=== PATIENT | male | born 1960 | race Two or more races ===

== ENCOUNTER 2019-07-22 16:26 | Emergency (ER) | payer BC ==
[2019-07-22 16:32] VITALS: RESP 18
[2019-07-22 17:32] LABS: Appearance,Urine Cloudy (Clear); Bilirubin,Urine Negative (Negative); Blood,Urine Large (Negative); Color,Urine Yellow; Glucose,Urine (UA) 2+ (Negative); Ketones,Urine Negative (Negative); Leukocyte Esterase,Urine Trace (Negative); Mucus,Urine Rare /hpf; Nitrite,Urine Negative (Negative); PH, Urine 6.5 (5.0-8.0); Protein,Urine 1+ (Negative); RBC,Urine >182 /hpf (0-5); Specific Gravity,Urine 1.009 (1.001-1.035); Urobilinogen,Urine <2.0 mg/dL (<2.0); WBC,Urine 10 /hpf (0-5)
[2019-07-22 17:39] LABS: Basophils # (A) 0.1 k/uL (0-0.2); Basophils % (A) 1 %; Eosinophils # (A) 0.1 k/uL (0-0.7); Eosinophils % (A) 2 %; HGB 14.4 gm/dL (13.0-17.5); Lymphocytes # (A) 1.6 k/uL (1.0-4.8); Lymphocytes % (A) 18 %; MCH 30.6 pg (25.0-35.0); MCHC 35.2 g/dL (31.0-37.0); MCV 87.1 fL (80.0-100.0); Mean Platelet Volume 7.6; Monocytes # (A) 0.3 k/uL (0-1.0); Monocytes % (A) 3 %; Neutrophils # (A) 6.5 k/uL (1.3-7.7); Neutrophils % (A) 75 %; Platelet Count 217 k/uL (150-450); RBC 4.71 m/uL (4.30-5.90); RDW 12.6 % (11.5-15.5); WBC 8.8 k/uL (3.8-10.6)
[2019-07-22 17:51] LABS: ALT 34 U/L (21-72); AST 25 U/L (17-59); African American GFR (CKD) >90 (>60 ml/min/1.73 sqM); Albumin 4.6 g/dL (3.5-5.0); Alkaline Phosphatase 72 U/L (38-126); Anion Gap 11 mmol/L; Blood Urea Nitrogen 16 mg/dL (9-20); Calcium 9.9 mg/dL (8.4-10.2); Carbon Dioxide 27 mmol/L (22-30); Chloride 101 mmol/L (98-107); Glucose 224 mg/dL (74-99); Potassium 4.2 mmol/L (3.5-5.1); Sodium 139 mmol/L (137-145); Total Bilirubin 0.7 mg/dL (0.2-1.3); Total Protein 7.4 g/dL (6.3-8.2)
--- NOTE | 2019-07-22 18:35 | ED ---
General Adult HPI - General Chief complaint: Urogenital Stated complaint: urinating blood Time Seen by Provider: 07/22/19 16:35 Source: patient, family, RN notes reviewed Mode of arrival: ambulatory Limitations: no limitations - History of Present Illness Initial comments: 59-year-old male with a past medical history of hypertension, diabetes mellitus presents to the emergency department for a chief complaint of hematuria 3 weeks. Patient states that this has been intermittent over the past 3 weeks. States he has seen his primary care provider and had a urinalysis done that showed hematuria. States that he was referred to urology and has an appointment in 5 days with them. However today he had more bleeding than normal when he urinated and so wanted to be evaluated. Patient was also concerned because his blood pressure at home was systolic of 190. Denies any abdominal pain. Denies any flank pain. Denies any dysuria. Does admit to urinary frequency. Denies any difficulty urinating.Patient has no other complaints at this time including shortness of breath, chest pain, abdominal pain, nausea or vomiting, headache, or visual changes. - Related Data Allergies Allergy/AdvReac Type Severity Reaction Status Date / Time No Known Allergies Allergy Verified 07/22/19 16:32 Review of Systems ROS Statement: Those systems with pertinent positive or pertinent negative responses have been documented in the HPI. ROS Other: All systems not noted in ROS Statement are negative. Past Medical History Past Medical History: Diabetes Mellitus, Hypertension History of Any Multi-Drug Resistant Organisms: None Reported Past Surgical History: No Surgical Hx Reported Past Psychological History: No Psychological Hx Reported Smoking Status: Current every day smoker Past Alcohol Use History: Occasional Past Drug Use History: None Reported General Exam Limitations: no limitations General appearance: alert, in no apparent distress Head exam: Present: atraumatic, normocephalic, normal inspection Eye exam: Present: normal appearance, PERRL, EOMI. Absent: scleral icterus, conjunctival injection, periorbital swelling ENT exam: Present: normal exam, mucous membranes moist Neck exam: Present: normal inspection, full ROM. Absent: tenderness, meningismus, lymphadenopathy Respiratory exam: Present: normal lung sounds bilaterally. Absent: respiratory distress, wheezes, rales, rhonchi, stridor Cardiovascular Exam: Present: regular rate, normal rhythm, normal heart sounds. Absent: systolic murmur, diastolic murmur, rubs, gallop, clicks GI/Abdominal exam: Present: soft, normal bowel sounds. Absent: distended, tenderness, guarding, rebound, rigid Back exam: Absent: CVA tenderness (R), CVA tenderness (L) Psychiatric exam: Present: normal affect, normal mood Course Vital Signs 07/22/19 16:29 Temperature 97.9 F Pulse Rate 104 H Respiratory 18 Rate Blood Pressure 168/95 O2 Sat by Pulse 99 Oximetry Medical Decision Making - Medical Decision Making 59-year-old male presents for hematuria 3 weeks. HPI is documented. Vitals are stable. Patient is hypertensive of 160/95 however does have a history of this. Urinalysis initially obtained which did show gross hematuria and greater than 182 red blood cells. 10 white blood cells. Culture pending. CBC CMP unremarkable. Glucose is 224 patient has a history of diabetes.. Kidney function is normal. At this time patient is hemodynamically stable. I discussed importance of following up with urology for cystoscopy and possible further imaging. He will attend his appointment in 5 days. Discussed returning here if he has worsening symptoms or is unable to urinate. - Lab Data Result diagrams: 07/22/19 17:30 07/22/19 17:30 Lab Results 07/22/19 07/22/19 07/22/19 Range/Units 17:07 17:30 17:30 WBC 8.8 (3.8-10.6) k/uL RBC 4.71 (4.30-5.90) m/uL Hgb 14.4 (13.0-17.5) gm/dL Hct 41.0 (39.0-53.0) % MCV 87.1 (80.0-100.0) fL MCH 30.6 (25.0-35.0) pg MCHC 35.2 (31.0-37.0) g/dL RDW 12.6 (11.5-15.5) % Plt Count 217 (150-450) k/uL Neutrophils % 75 % Lymphocytes % 18 % Monocytes % 3 % Eosinophils % 2 % Basophils % 1 % Neutrophils # 6.5 (1.3-7.7) k/uL Lymphocytes # 1.6 (1.0-4.8) k/uL Monocytes # 0.3 (0-1.0) k/uL Eosinophils # 0.1 (0-0.7) k/uL Basophils # 0.1 (0-0.2) k/uL Sodium 139 (137-145) mmol/L Potassium 4.2 (3.5-5.1) mmol/L Chloride 101 (98-107) mmol/L Carbon Dioxide 27 (22-30) mmol/L Anion Gap 11 mmol/L BUN 16 (9-20) mg/dL Creatinine 0.70 (0.66-1.25) mg/dL Est GFR (CKD-EPI)AfAm >90 (>60 ml/min/1.73 sqM) Est GFR (CKD-EPI)NonAf >90 (>60 ml/min/1.73 sqM) Glucose 224 H (74-99) mg/dL Calcium 9.9 (8.4-10.2) mg/dL Total Bilirubin 0.7 (0.2-1.3) mg/dL AST 25 (17-59) U/L ALT 34 (21-72) U/L Alkaline Phosphatase 72 (38-126) U/L Total Protein 7.4 (6.3-8.2) g/dL Albumin 4.6 (3.5-5.0) g/dL Urine Color Yellow Urine Appearance Cloudy (Clear) Urine pH 6.5 (5.0-8.0) Ur Specific [place] 1.009 (1.001-1.035) Urine Protein 1+ H (Negative) Urine Glucose (UA) 2+ H (Negative) Urine Ketones Negative (Negative) Urine Blood Large H (Negative) Urine Nitrite Negative (Negative) Urine Bilirubin Negative (Negative) Urine Urobilinogen <2.0 (<2.0) mg/dL Ur Leukocyte Esterase Trace H (Negative) Urine RBC >182 H (0-5) /hpf Urine WBC 10 H (0-5) /hpf Urine Mucus Rare H (None) /hpf Disposition Clinical Impression: Hematuria Disposition: HOME SELF-CARE Condition: Good Instructions (If sedation given, give patient instructions): Hematuria (ED) Additional Instructions: Please follow up with urology as soon as possible or at your appointment. Please return here if you have any worsening symptoms or are unable to urinate. Is patient prescribed a controlled substance at d/c from ED?: No Referrals: Phil Blackbunr MD [Primary Care Provider] - 1-2 days Timmy Arias MD [STAFF PHYSICIAN] - 1-2 days Time of Disposition: 18:52
[2019-07-22 19:19] VITALS: BP 145/87; PULSE 84; TEMP 98.7
== END 2019-07-22 19:19 | disposition home or self-care (01) ==
LOC: EC 16:26
DX: R31.0 Gross hematuria (principal); R35.0 Frequency of micturition; I10 Essential (primary) hypertension; F17.200 Nicotine dependence, unspecified, uncomplicated
CPT/HCPCS: 36415; 80053; 81001; 85025; 87086; 99283

== ENCOUNTER → 2020-03-26 | Outpatient (CLI) | payer BC ==
[2020-03-26 07:36] LABS: African American GFR (CKD) >90 (>60 ml/min/1.73 sqM); Blood Urea Nitrogen 17 mg/dL (9-20); Non-African American GFR(CKD) 90 (>60 ml/min/1.73 sqM)
--- NOTE | 2020-03-26 10:05 | CT ---
EXAMINATION TYPE: CT urogram wo/w con DATE OF EXAM: 03/26/2020 COMPARISON: None INDICATION: gross hematuria, right flank pain DLP: 2299.9 mGycm, Automated exposure control for dose reduction was used. CONTRAST: 100 mL of Isovue 300. Study performed TECHNIQUE: Axial images were obtained from above the diaphragm to the pubic rami in the axial plane a t 5 mm thick sections. Reconstructed images are reviewed on the computer in the coronal plane. FINDINGS: Limited CT sections are obtained the lung bases. The lung bases are clear. CT ABDOMEN: Liver: Tiny hypodensities in the posterior right upper lobe of the liver and measuring 0.5 cm. This could be a very small cyst. This is too small to classify as a simple cyst. Spleen: Normal Pancreas: Normal Adrenal glands: Right adrenal gland is thickened measuring 2.7 cm and 13 Hounsfield units precontrast . Postcontrast this measures 54 Hounsfield units. On delayed images this measures 30 Hounsfield.. Lef t adrenal gland is normal. Gallbladder: Normal Kidneys: No masses are evident. No hydronephrosis is present. There is a 3.2 cm cyst measuring 9 Ho unsfield units on the medial mid left kidney. Delayed images were obtained through the kidneys, whic h remain unremarkable. Aorta: Vascular calcification is within the aorta. Inferior vena cava: Normal. CT PELVIS: Loops of bowel within the abdomen and pelvis are normal. Studies without oral contrast limiting b owel evaluation. Appendix: Normal as visualized. Urinary bladder: On delayed images there is a 5.0 x 4.0 cm slightly lobular mass along the posterior lateral right urinary bladder suspicious for neoplasm. No hydroureter is evident. The ureter enters n ear the posterior aspect of this mass. Masses better visualized on the longer delayed images. Genitourinary structures: Uterus and ovaries are not identified. Osseous structures: No suspicious lytic or sclerotic lesions. Three-D reconstructed images of the renal collecting system ureters and urinary bladder are performed on a separate computer by the technologist. Renal calyces infundibula by and renal pelves as visuali zed appear normal. Ureters appear normal. Mass within urinary bladder is again evident. The ureter ap pears to extend through the inferior most portion of the urinary bladder mass. IMPRESSIONS: 1. Mass within the posterior lateral right portion of the urinary bladder suspicious for neoplasm. A dditional workup is recommended. 2. No hydronephrosis or hydroureter. 3. Enlarged right adrenal gland. This could be suggestive for an adenoma although not diagnostic of a n adenoma. Metastasis remains within the differential.
== END | disposition home or self-care (01) ==
LOC: RADCTMAIN 06:53
PROVIDERS: ATTEND Urology
DX: N32.89 Other specified disorders of bladder (principal); E27.8 Other specified disorders of adrenal gland; R31.0 Gross hematuria
CPT/HCPCS: 82565; 84520; 74178; 74400; Q9967

== ENCOUNTER 2020-04-09 21:05 | Emergency (ER) | payer BC ==
[2020-04-09 21:11] VITALS: BP 105/69; PULSE 129; RESP 18; TEMP 97.9
[2020-04-09] MEDS ORDERED: LIDOCAINE URO-JET JELLY 2% 5 ML KIT URETHRAL ONE (21:13)
--- NOTE | 2020-04-09 21:35 | ED ---
Male Urogenital HPI - General Source: patient, family Mode of arrival: ambulatory Limitations: no limitations <Juan Curran - Last Filed: 04/09/20 22:22> <Latonia Garcia - Last Filed: 04/11/20 13:56> - General Chief complaint: Urogenital Stated complaint: Post Op Catheter Issue Time Seen by Provider: 04/09/20 21:13 - History of Present Illness Initial comments: Patient is 60-year-old male presenting to emergency Department with a chief complaint of a catheter issue. Patient states today he had a mass resected from his bladder by . States he was discharged with a Saldana catheter. States the Saldana catheter is clogged and is nondraining. States he feels that his bladder is full. Patient reports suprapubic fullness and pressure. Denies any nausea or vomiting diarrhea. Denies any testicular pain or tenderness. (Juan Cruran) - Related Data Home Medications Medication Instructions Recorded Confirmed Cephalexin [Keflex] 500 mg PO Q12HR 04/09/20 04/10/20 Ketorolac [Toradol] 10 mg PO Q6H PRN 04/09/20 04/10/20 Lisinopril [Prinivil] 5 mg PO TID 04/09/20 04/10/20 amLODIPine [Norvasc] 5 mg PO DAILY 04/09/20 04/10/20 glipiZIDE XL [Glucotrol Xl] 2.5 mg PO DAILY 04/09/20 04/10/20 metFORMIN HCL [metFORMIN HCL ER] 1,000 mg PO DAILY 04/09/20 04/10/20 metFORMIN HCL [metFORMIN HCL ER] 500 mg PO HS 04/09/20 04/10/20 Allergies Allergy/AdvReac Type Severity Reaction Status Date / Time No Known Allergies Allergy Verified 04/10/20 13:32 Review of Systems ROS Other: All systems not noted in ROS Statement are negative. <Juan Curran - Last Filed: 04/09/20 22:22> ROS Other: All systems not noted in ROS Statement are negative. <Latonia Garcia - Last Filed: 04/11/20 13:56> ROS Statement: Those systems with pertinent positive or pertinent negative responses have been documented in the HPI. Past Medical History Past Medical History: Diabetes Mellitus, Hypertension History of Any Multi-Drug Resistant Organisms: None Reported Past Surgical History: Bladder Surgery Past Psychological History: No Psychological Hx Reported Smoking Status: Current every day smoker Past Alcohol Use History: Occasional Past Drug Use History: None Reported <Juan Curran - Last Filed: 04/09/20 22:22> General Exam Limitations: no limitations General appearance: alert, in no apparent distress Head exam: Present: atraumatic, normocephalic, normal inspection Eye exam: Present: normal appearance, PERRL, EOMI Pupils: Present: normal accommodation ENT exam: Present: normal exam, normal oropharynx, mucous membranes moist Neck exam: Present: normal inspection, full ROM. Absent: tenderness Respiratory exam: Present: normal lung sounds bilaterally. Absent: respiratory distress, wheezes Cardiovascular Exam: Present: regular rate, normal rhythm, normal heart sounds GI/Abdominal exam: Present: soft, tenderness (Suprapubic tenderness). Absent: distended exam: Present: normal inspection, urethral discharge (Saldana catheter). Absent: testicular tenderness, scrotal swelling Extremities exam: Present: normal inspection, full ROM. Absent: tenderness Back exam: Present: normal inspection, full ROM. Absent: tenderness Neurological exam: Present: alert, oriented X3 Psychiatric exam: Present: normal affect, normal mood Skin exam: Present: warm, dry, intact, normal color <Juan Curran - Last Filed: 04/09/20 22:22> Course Vital Signs 04/09/20 21:08 Temperature 97.9 F Pulse Rate 129 H Respiratory 18 Rate Blood Pressure 105/69 O2 Sat by Pulse 99 Oximetry Medical Decision Making <Juan Curran - Last Filed: 04/09/20 22:22> <Latonia Garcia - Last Filed: 04/11/20 13:56> - Medical Decision Making Patient signed off to Dr. Garcia (Juan Curran) I discussed case with Dr. Liu. Informed him that we attempted to flush catheter without improvement. He requests that the saldana be removed and replaced with another 20F saldana then irrigated to clear. We are successful in doing this therefore the patient is sent home and told to follow up with Dr. Arias. Patient agreeable. Will return with any new or worsening symptoms. (Latnoia Garcia) Disposition <Juan Curran - Last Filed: 04/09/20 22:22> Is patient prescribed a controlled substance at d/c from ED?: No Time of Disposition: 22:59 <Latonia Garcia - Last Filed: 04/11/20 13:56> Clinical Impression: Malfunction of Saldana catheter Disposition: HOME SELF-CARE Condition: Stable Instructions (If sedation given, give patient instructions): Saldana Catheter Placement and Care (ED) Additional Instructions: Please call Dr. Arias in the morning. Return to the emergency department if your catheter gets obstructed again Referrals: Phil Blackburn MD [Primary Care Provider] - 1-2 days Timmy Arias MD [STAFF PHYSICIAN] - 1-2 days
[2020-04-09] MEDS ORDERED: HYDROcodone/APAP 5-325MG 1 EACH TAB PO STA (23:47)
[2020-04-10] MEDS ORDERED: ONDANSETRON 4 MG/2 ML VIAL ONE (18:11)
[2020-04-10] MEDS ORDERED: MIDAZOLAM 2 MG/2 ML VIAL ONE (18:11)
[2020-04-10] MEDS ORDERED: PROPOFOL 10 MG/ML 20 ML VIAL IV ONE (18:11)
[2020-04-10] MEDS ORDERED: fentaNYL (PF) 50 MCG/ML 2 ML AMP ONE (18:11)
[2020-04-10] MEDS ORDERED: PHENYLEPHRINE-0.9% NACL SYG 1 MG/10 ML SYRINGE ONE (18:11)
[2020-04-10] MEDS ORDERED: DEXAMETHASONE SOD PHOSPHATE 10 MG/ML 1 ML VIAL ONE (18:11)
== END 2020-04-09 23:50 | disposition home or self-care (01) ==
LOC: EC 21:05
DX: T83.018A Breakdown (mechanical) of other urinary catheter, initial encounter (principal); R36.9 Urethral discharge, unspecified; F17.200 Nicotine dependence, unspecified, uncomplicated; E11.9 Type 2 diabetes mellitus without complications; I10 Essential (primary) hypertension; Z98.890 Other specified postprocedural states; Z79.84 Long term (current) use of oral hypoglycemic drugs; Z79.899 Other long term (current) drug therapy
CPT/HCPCS: 51702; 99283

== ENCOUNTER 2020-04-10 12:23 | Inpatient (IN) | payer BC ==
[2020-04-10] MEDS ORDERED: BELLADONNA-OPIUM 16.2-60 MG 1 EACH SUPP RECTAL PRN (13:46)
[2020-04-10 14:36] LABS: Basophils % (A) 0 %; Eosinophils # (A) 0.1 k/uL (0-0.7); Eosinophils % (A) 1 %; HCT 28.7 % (39.0-53.0); HGB 9.4 gm/dL (13.0-17.5); Lymphocytes # (A) 1.4 k/uL (1.0-4.8); Lymphocytes % (A) 13 %; MCH 30.1 pg (25.0-35.0); MCHC 32.8 g/dL (31.0-37.0); MCV 91.7 fL (80.0-100.0); Mean Platelet Volume 8.1; Monocytes # (A) 0.5 k/uL (0-1.0); Monocytes % (A) 5 %; Neutrophils # (A) 8.8 k/uL (1.3-7.7); Neutrophils % (A) 80 %; Platelet Count 247 k/uL (150-450); RBC 3.13 m/uL (4.30-5.90)
[2020-04-10 14:43] LABS: INR 1.1 (<1.2); Prothrombin Time 11.2 sec (9.0-12.0)
[2020-04-10 14:50] LABS: Calcium 8.4 mg/dL (8.4-10.2); Potassium 4.6 mmol/L (3.5-5.1)
[2020-04-10] MEDS: SODIUM CHLORIDE 0.9% 1,000 ML IV SCH ×2 (14:57→22:01)
[2020-04-10] MEDS ORDERED: HEPARIN SODIUM,PORCINE 5,000 UNIT/ML 1 ML VIAL SQ SCH (16:00)
--- NOTE | 2020-04-10 16:58 | P.GSHP ---
History of Present Illness H&P Date: 04/10/20 Chief Complaint: Gross Hematuria Mr Marsh is 60 yo male with hx of bladder mass S/P TURBT 04/09, he developed gross hematuria and clot retention overnight required catheter exchange. He was discharged home from ED last night. He continued to have gross hematuria and presented to clinic with clot retention. Given his continued hematuria decision was made to admit patient to the hospital for close monitoring and he will be taken to OR for cysto and clot evacuation. At this time he denies any fever/chills, dizziness or lightheadedness - Constitutional Constitutional: Denies chills, Denies fever - EENT Ears, nose, mouth and throat: Denies headache, Denies sore throat - Cardiovascular Cardiovascular: Denies chest pain, Denies shortness of breath - Respiratory Respiratory: Denies cough, Denies 7 - Gastrointestinal Gastrointestinal: Denies abdominal pain, Denies diarrhea, Denies nausea, Denies vomiting - Genitourinary (Male) Genitourinary: Reports hematuria, Denies flank pain - Musculoskeletal Musculoskeletal: Denies myalgias - Neurological Neurological: Denies numbness, Denies weakness Past Medical History Past Medical History: Diabetes Mellitus, Hypertension History of Any Multi-Drug Resistant Organisms: None Reported Past Surgical History: Bladder Surgery Additional Past Anesthesia/Blood Transfusion Reaction / Comment(s): n/a Past Psychological History: No Psychological Hx Reported Smoking Status: Current every day smoker Past Alcohol Use History: None Reported Past Drug Use History: None Reported - Past Family History Father Family Medical History: No Reported History Medications and Allergies Home Medications Medication Instructions Recorded Confirmed Type Cephalexin [Keflex] 500 mg PO Q12HR 04/09/20 04/10/20 History Ketorolac [Toradol] 10 mg PO Q6H PRN 04/09/20 04/10/20 History Lisinopril [Prinivil] 5 mg PO TID 04/09/20 04/10/20 History amLODIPine [Norvasc] 5 mg PO DAILY 04/09/20 04/10/20 History glipiZIDE XL [Glucotrol Xl] 2.5 mg PO DAILY 04/09/20 04/10/20 History metFORMIN HCL [metFORMIN HCL ER] 1,000 mg PO DAILY 04/09/20 04/10/20 History metFORMIN HCL [metFORMIN HCL ER] 500 mg PO HS 04/09/20 04/10/20 History Allergies Allergy/AdvReac Type Severity Reaction Status Date / Time No Known Allergies Allergy Verified 04/10/20 13:32 Surgical - Exam Vital Signs Temp Pulse Resp BP Pulse Ox 97.8 F 93 18 111/64 100 04/10/20 13:43 04/10/20 13:43 04/10/20 13:43 04/10/20 13:43 04/10/20 13:43 - General well developed, well nourished, moderate distress, moderate pain - Eyes PERRL, normal ocular movement - ENT normal nares, normal mucosa - Respiratory normal expansion, normal respiratory effort - Abdomen Abdomen: soft, non tender, no distended - Psychiatric oriented to time, oriented to person, oriented to place, speech is normal Results - Labs 04/10/20 14:18 04/10/20 14:18 Abnormal Lab Results - Last 24 Hours (Table) 04/10/20 04/10/20 Range/Units 14:18 14:18 WBC 11.0 H (3.8-10.6) k/uL RBC 3.13 L (4.30-5.90) m/uL Hgb 9.4 L (13.0-17.5) gm/dL Hct 28.7 L (39.0-53.0) % Neutrophils # 8.8 H (1.3-7.7) k/uL Sodium 133 L (137-145) mmol/L BUN 32 H (9-20) mg/dL Glucose 196 H (74-99) mg/dL Diabetes panel 04/10/20 Range/Units 14:18 Sodium 133 L (137-145) mmol/L Potassium 4.6 (3.5-5.1) mmol/L Chloride 100 (98-107) mmol/L Carbon Dioxide 24 (22-30) mmol/L BUN 32 H (9-20) mg/dL Creatinine 1.18 (0.66-1.25) mg/dL Glucose 196 H (74-99) mg/dL Calcium 8.4 (8.4-10.2) mg/dL Calcium panel 04/10/20 Range/Units 14:18 Calcium 8.4 (8.4-10.2) mg/dL Pituitary panel 04/10/20 Range/Units 14:18 Sodium 133 L (137-145) mmol/L Potassium 4.6 (3.5-5.1) mmol/L Chloride 100 (98-107) mmol/L Carbon Dioxide 24 (22-30) mmol/L BUN 32 H (9-20) mg/dL Creatinine 1.18 (0.66-1.25) mg/dL Glucose 196 H (74-99) mg/dL Calcium 8.4 (8.4-10.2) mg/dL Adrenal panel 04/10/20 Range/Units 14:18 Sodium 133 L (137-145) mmol/L Potassium 4.6 (3.5-5.1) mmol/L Chloride 100 (98-107) mmol/L Carbon Dioxide 24 (22-30) mmol/L BUN 32 H (9-20) mg/dL Creatinine 1.18 (0.66-1.25) mg/dL Glucose 196 H (74-99) mg/dL Calcium 8.4 (8.4-10.2) mg/dL Assessment and Plan Assessment: 60 yo male with hx of bladder tumor S/P TURBT on 04/09. Presents with continued hematuria -NPO -OR for cysto/Clot Evac
[2020-04-10] MEDS ORDERED: MIDAZOLAM 2 MG/2 ML VIAL ONE (18:11)
[2020-04-10] MEDS ORDERED: DEXAMETHASONE SOD PHOSPHATE 10 MG/ML 1 ML VIAL ONE (18:11)
[2020-04-10] MEDS ORDERED: ONDANSETRON 4 MG/2 ML VIAL ONE (18:11)
[2020-04-10] MEDS ORDERED: PHENYLEPHRINE-0.9% NACL SYG 1 MG/10 ML SYRINGE ONE (18:11)
[2020-04-10] MEDS ORDERED: PROPOFOL 10 MG/ML 20 ML VIAL IV ONE (18:11)
[2020-04-10] MEDS ORDERED: fentaNYL (PF) 50 MCG/ML 2 ML AMP ONE (18:11)
[2020-04-10] MEDS ORDERED: SODIUM CHLORIDE 0.9% 1,000 ML IV ONE (18:16)
[2020-04-10] MEDS ORDERED: ceFAZolin 1,000 MG VIAL IVPB ONE (18:22)
[2020-04-10] MEDS ORDERED: LACTATED RINGERS 1,000 ML IV ONE (18:59)
--- NOTE | 2020-04-10 19:58 | P.OP ---
Date of Procedure: 04/10/20 Preoperative Diagnosis: gross Hematuria/bladder tumor Postoperative Diagnosis: same Procedure(s) Performed: Cystoscopy, clot evacuation and fulguration and right stent removal Anesthesia: AJM Surgeon: Timmy Arias Estimated Blood Loss (ml): 50 Pathology: none sent Condition: stable Disposition: PACU Indications for Procedure: Mr. Marsh is 60-year-old male with history of bladder tumor. Status post TURBT on April 09. He developed gross hematuria overnight, and his catheter was clotted off requiring catheter exchange. He continued to have hematuria despite Kellogg irrigation. Discussed with him given his continued hematuria recommend he undergo Cysto/Clot evac . Discussed with him the risk which includes but not limited to bleeding infection injury to the bladder. He understood all the risk and agreed to proceed. Of note he's been also having significant bladder spasms decision was made to remove the stent given his significant bladder spasms. Operative Findings: 400 cc of clot no active bleeding noticed minimal venous oozing from the resection site Description of Procedure: Patient was brought to the operating room, general anesthesia was induced. He was prepped and draped in sterile fashion placed in the dorsal lithotomy position. Resectoscope fitted with a 27Fr sheath was inserted per urethra and advanced into the bladder. Cystoscopy was performed showed significant blood clots in the bladder. Using the Ellik evacuators all the clots were evacuated. Approximately 400 mL of clot was removed. At this time the resectoscope was reinserted and the there was no active bleeding noticed. The resection site was thoroughly fulgurated using the bipolar button. Repeat cystoscopy demonstrated no evidence of bleeding or any additional clots. At this time the resectoscope was removed and a 22-Monegasque hematuria catheter was inserted. The catheter was irrigated to clear without returns of any clot. 25 mL was left in the balloon. This time the patient was awakened from anesthesia and taken to recovery in stable condition
[2020-04-10] MEDS ORDERED: metFORMIN 500 MG TAB PO SCH (21:00)
[2020-04-10 21:47] LABS: Glucose,Whole Blood 218 mg/dL (75-99)
[2020-04-10] MEDS: metFORMIN 500 MG TAB PO SCH (22:00)
[2020-04-11] MEDS: ACETAMINOPHEN TAB 325 MG TAB PO PRN ×3 (04:25→21:35)
[2020-04-11] MEDS: SODIUM CHLORIDE 0.9% 1,000 ML IV SCH ×3 (06:51→21:36)
[2020-04-11] MEDS: metFORMIN 500 MG TAB PO SCH ×2 (07:08→20:23)
[2020-04-11] MEDS: amLODIPine 5 MG TAB PO SCH (07:09)
[2020-04-11 07:18] LABS: African American GFR (CKD) >90 (>60 ml/min/1.73 sqM); Anion Gap 3 mmol/L; Blood Urea Nitrogen 20 mg/dL (9-20); Calcium 7.4 mg/dL (8.4-10.2); Carbon Dioxide 25 mmol/L (22-30); Chloride 108 mmol/L (98-107); Glucose 126 mg/dL (74-99); Non-African American GFR(CKD) 87 (>60 ml/min/1.73 sqM); Potassium 4.1 mmol/L (3.5-5.1); Sodium 136 mmol/L (137-145)
[2020-04-11 07:24] LABS: Basophils % (A) 0 %; Eosinophils % (A) 0 %; HCT 22.6 % (39.0-53.0); Lymphocytes # (A) 1.6 k/uL (1.0-4.8); Lymphocytes % (A) 17 %; MCH 30.8 pg (25.0-35.0); MCHC 33.7 g/dL (31.0-37.0); MCV 91.6 fL (80.0-100.0); Mean Platelet Volume 8.2; Monocytes # (A) 0.5 k/uL (0-1.0); Monocytes % (A) 5 %; Neutrophils # (A) 7.3 k/uL (1.3-7.7); Neutrophils % (A) 77 %; Platelet Count 197 k/uL (150-450); RBC 2.47 m/uL (4.30-5.90); RDW 12.9 % (11.5-15.5); WBC 9.5 k/uL (3.8-10.6)
[2020-04-11 07:34] LABS: HGB 7.6 gm/dL (13.0-17.5)
[2020-04-11 07:52] LABS: Glucose,Whole Blood 164 mg/dL (75-99)
[2020-04-11] MEDS ORDERED: METFORMIN HCL 1000 MG PO SCH (09:00)
[2020-04-11 11:47] LABS: Glucose,Whole Blood 226 mg/dL (75-99)
--- NOTE | 2020-04-11 17:04 | P.PN ---
Subjective Progress Note Date: 04/11/20 Principal diagnosis: Gross hematuria POD #1 S/P Cysto and clot evac. No acute overnight events, mildbladder spasms this am, improved compared to yesterday. Urine clear Objective - Vital Signs Vital signs: Vital Signs Temp 100.0 F H 04/11/20 15:01 Pulse 100 04/11/20 15:01 Resp 18 04/11/20 15:01 BP 115/72 04/11/20 15:01 Pulse Ox 98 04/11/20 15:01 Intake & Output 04/10/20 04/11/20 04/11/20 18:59 06:59 18:59 Intake Total 900 200 Output Total 2850 800 Balance 900 -2650 -800 Weight 97.976 kg Intake: IV 900 200 Output: Urine 2800 800 Estimated Blood Loss 50 Other: Voiding Method Indwelling Catheter Indwelling Catheter Indwelling Catheter - Gastrointestinal General gastrointestinal: Present: soft. Absent: distended, rigid - Genitourinary Genitourinary Comment(s): Clear yellow - Labs CBC & Chem 7: 04/11/20 06:15 04/11/20 06:15 Labs: Abnormal Lab Results - Last 24 Hours (Table) 04/10/20 04/11/20 04/11/20 Range/Units 21:45 06:15 06:15 RBC 2.47 L (4.30-5.90) m/uL Hgb 7.6 L D (13.0-17.5) gm/dL Hct 22.6 L (39.0-53.0) % Sodium 136 L (137-145) mmol/L Chloride 108 H (98-107) mmol/L Glucose 126 H (74-99) mg/dL POC Glucose (mg/dL) 218 H (75-99) mg/dL Calcium 7.4 L (8.4-10.2) mg/dL 04/11/20 04/11/20 Range/Units 07:32 11:45 RBC (4.30-5.90) m/uL Hgb (13.0-17.5) gm/dL Hct (39.0-53.0) % Sodium (137-145) mmol/L Chloride (98-107) mmol/L Glucose (74-99) mg/dL POC Glucose (mg/dL) 164 H 226 H (75-99) mg/dL Calcium (8.4-10.2) mg/dL Assessment and Plan Assessment: 60 yo male with hx of bladder tumor S/P TURBT on 04/09. Presents with continued hematuria. POD #1 S/P cysto/Clot Evac Plan: - Continue to monitor urine output -Irrigate when necessary if hematuric -Myrbetriq for bladder sapsms -potential discharge home tomorrow
[2020-04-11 17:07] LABS: Glucose,Whole Blood 122 mg/dL (75-99)
[2020-04-11 20:21] LABS: Glucose,Whole Blood 159 mg/dL (75-99)
[2020-04-12] MEDS: ACETAMINOPHEN TAB 325 MG TAB PO PRN (05:12)
[2020-04-12] MEDS: SODIUM CHLORIDE 0.9% 1,000 ML IV SCH (05:13)
[2020-04-12 06:46] LABS: Glucose,Whole Blood 200 mg/dL (75-99)
[2020-04-12] MEDS: amLODIPine 5 MG TAB PO SCH (07:10)
[2020-04-12] MEDS: metFORMIN 500 MG TAB PO SCH (07:11)
[2020-04-12 07:49] VITALS: BP 124/74; PULSE 86; RESP 17; TEMP 98.9
[2020-04-12] MEDS ORDERED: HEPARIN SODIUM,PORCINE 5,000 UNIT/ML 1 ML VIAL SQ SCH (08:00)
[2020-04-12 10:36] LABS: Basophils % (A) 0 %; Eosinophils # (A) 0.1 k/uL (0-0.7); Eosinophils % (A) 1 %; HCT 22.9 % (39.0-53.0); HGB 7.4 gm/dL (13.0-17.5); Lymphocytes # (A) 1.4 k/uL (1.0-4.8); Lymphocytes % (A) 16 %; MCH 29.5 pg (25.0-35.0); MCHC 32.1 g/dL (31.0-37.0); MCV 91.7 fL (80.0-100.0); Mean Platelet Volume 8.2; Monocytes # (A) 0.4 k/uL (0-1.0); Monocytes % (A) 4 %; Neutrophils # (A) 6.8 k/uL (1.3-7.7); Neutrophils % (A) 77 %; Platelet Count 182 k/uL (150-450); RDW 12.8 % (11.5-15.5); WBC 8.7 k/uL (3.8-10.6)
[2020-04-12 11:39] LABS: Glucose,Whole Blood 158 mg/dL (75-99)
--- NOTE | 2020-04-12 18:05 | P.DS ---
Providers Date of admission: 04/10/20 12:59 Attending physician: Timmy Arias MD Primary care physician: Timmy Arias MD Hospital Course: Mr Marsh is 60 yo male with hx of bladder tumor, he underwent TURBT on 04/09. He presented back to the ED on 04/09 with clot retention requiring saldana exchange. He was seen in clinic on 04/10 for gross hematuria. He was noted to have significant clot burden. He was taken to the OR on 04/10 for cysto clot Evac, please see op note dated 04/10 for surgery details. He was admitted to hospital post operartively. His heamturia resolved on POD #2 and he was discharged home. At time of discharge he was ambulating, tolerating diet and pain is well controlled. Plan - Discharge Summary Discharge Rx Participant: Yes New Discharge Prescriptions: No Action Ketorolac [Toradol] 10 mg PO Q6H PRN PRN Reason: Pain metFORMIN HCL [metFORMIN HCL ER] 500 mg PO HS amLODIPine [Norvasc] 5 mg PO DAILY Cephalexin [Keflex] 500 mg PO Q12HR metFORMIN HCL [metFORMIN HCL ER] 1,000 mg PO DAILY glipiZIDE XL [Glucotrol Xl] 2.5 mg PO DAILY Lisinopril [Prinivil] 5 mg PO TID Discharge Medication List Cephalexin [Keflex] 500 mg PO Q12HR 04/09/20 [History] Ketorolac [Toradol] 10 mg PO Q6H PRN 04/09/20 [History] Lisinopril [Prinivil] 5 mg PO TID 04/09/20 [History] amLODIPine [Norvasc] 5 mg PO DAILY 04/09/20 [History] glipiZIDE XL [Glucotrol Xl] 2.5 mg PO DAILY 04/09/20 [History] metFORMIN HCL [metFORMIN HCL ER] 1,000 mg PO DAILY 04/09/20 [History] metFORMIN HCL [metFORMIN HCL ER] 500 mg PO HS 04/09/20 [History] Follow up Appointment(s)/Referral(s): Timmy Arias MD [Primary Care Provider] - 04/16/20 8:40 am Patient Instructions/Handouts: Hematuria (GEN)
--- NOTE | 2020-04-15 07:55 | CDI ---
Documentation Clarification Form Date: 04/15/20 From: Yin Vasquez Phone: If you have a question about this query, please contact Rosa Maria Pop, Car [employer] at [phone] between 8am and 5pm. Admit Date: 04/10/20 Discharge Date: 04/12/20 Patient Name: ADA RIOS Visit Number: [id number] ATTENTION: The Clinical Documentation Specialists (CDI) and [facility] Coding Staff appreciate your assistance in clarifying documentation. Please respond to the clarification below the line at the bottom and electronically sign. The CDI & [facility] Coding staff will review the response and follow-up if needed. Please note: Queries are made part of the Legal Health Record. If you have any questions, please contact the author of this message via ITS. Dear Dr. Timmy Arias, Gross hematuria following TURBT on 04/09 is documented in the H&P, procedure note and DS. Patients Admitting Diagnosis: gross hematuria/bladder tumor Post-Operative Diagnosis: same Procedure performed: cystoscopy, clot evacuation and fulguration and right stent removal History/Risk Factors: HTN, smoker Clinical Indicators: gross hematuria Treatment: cystoscopy, clot evacuation and fulguration and right stent removal In order to accurately reflect this patients severity of illness, please clarify if the gross hematuria harry complication from the bladder tumor removal? -has been ruled out -is a complication of surgical procedure -is an expected outcome of the surgical procedure -is related to co-morbid condition(s) of -Other please specify -Unable to determine Gross Hematuria was complication of the surgical procedure secondary to large bladder tumor resection MTDD
== END 2020-04-12 14:58 | disposition home or self-care (01) | DRG 989 ==
LOC: 4SSUR 12:59
PROVIDERS: ADMIT Urology; ATTEND Urology
PROC: 0T5B8ZZ Destruction of Bladder, Via Natural or Artificial Opening Endoscopic (ICD-10-PCS; principal; 2020-04-10 10:30)
PROC: 0TP98DZ Removal of Intraluminal Device from Ureter, Via Natural or Artificial Opening Endoscopic (ICD-10-PCS; principal; 2020-04-10 10:30)
PROC: 0TCB8ZZ Extirpation of Matter from Bladder, Via Natural or Artificial Opening Endoscopic (ICD-10-PCS; principal; 2020-04-10 10:30)
DX: N99.820 Postprocedural hemorrhage of a genitourinary system organ or structure following a genitourinary system procedure (principal); R31.0 Gross hematuria; D49.4 Neoplasm of unspecified behavior of bladder; E11.9 Type 2 diabetes mellitus without complications; N32.89 Other specified disorders of bladder; I10 Essential (primary) hypertension; F17.200 Nicotine dependence, unspecified, uncomplicated; Z71.6 Tobacco abuse counseling; Z79.84 Long term (current) use of oral hypoglycemic drugs; Z79.899 Other long term (current) drug therapy; Y83.8 Other surgical procedures as the cause of abnormal reaction of the patient, or of later complication, without mention of misadventure at the time of the procedure
CPT/HCPCS: 51702; 80048; 85025; 85610; 86850; 86900; 86901; 99283

== ENCOUNTER → 2023-08-30 | Outpatient (CLI) | payer BC ==
[2023-08-30 10:07] LABS: African American GFR (CKD) >90 (>60 ml/min/1.73 sqM); Blood Urea Nitrogen 18 mg/dL (9-20); Non-African American GFR(CKD) 88 (>60 ml/min/1.73 sqM)
--- NOTE | 2023-08-30 12:01 | CT ---
EXAMINATION TYPE: CT urogram wo/w con CT DLP: 3051.2 mGycm, Automated exposure control for dose reduction was used. DATE OF EXAM: 08/30/2023 11:45 AM COMPARISON: 03/26/2020 CLINICAL INDICATION:Male, 63 years old with history of C67.9 BLADDER CA R31.0; PHH, bladder ca TECHNIQUE: Urogram with imaging of the abdomen and pelvis. Coronal and sagittal reformats were performed. 2D and 3D reconstructions are performed to assist visualization of the urinary tract on a separate workstat ion. Contrast used:100 mL of Isovue 300 with IV Contrast, Oral contrast used: None. FINDINGS: LOWER CHEST: No significant findings. GENITOURINARY: RIGHT KIDNEY AND URETER: No calculi. No hydronephrosis or hydroureter. No renal mass or other lesions . Limited distal ureter secondary to lack of excreted IV contrast with that said urothelial lesions: no filling defect, dilation, stricture or wall thickening the visualized portions. LEFT KIDNEY AND URETER: Nonobstructing 4 mm calculus. No hydronephrosis or hydroureter. No renal mass or other lesions. The distal portion of the right ureter is not fully visualized. No urothelial lesi ons: no filling defect, dilation, stricture or wall thickening. Simple appearing left renal cyst. URINARY BLADDER: Well distended. Limited evaluation secondary to partial filling of the bladder with excreted IV contrast. No calculi or obvious mass. Right posterior bladder diverticulum similar prior. REPRODUCTIVE: Prostate gland is enlarged measuring 5.7 cm. ABDOMEN LIVER: Unremarkable. GALLBLADDER AND BILE DUCTS: Unremarkable PANCREAS: Unremarkable. SPLEEN: Unremarkable. ADRENAL GLANDS: Stable in size indeterminate right adrenal nodule measuring up to 2.[address] atistically likely represent benign adrenal adenoma. Left adrenal gland is stable morphology. STOMACH AND BOWEL: . No evidence of bowel obstruction. Appendix appears within normal limits. PERITONEUM: No evidence of pneumoperitoneum, free fluid, or adenopathy. Prominent lymph nodes are se en throughout the retroperitoneum. VASCULATURE: No evidence of aortic aneurysm. Left retroaortic renal vein. MUSCULOSKELETAL: No acute osseous abnormalities. Mild disc degeneration changes are present throughou t the thoracolumbar spine. LYMPH NODES: No gross evidence for lymphadenopathy. SOFT TISSUE/ABDOMINAL WALL: Fat-containing inguinal hernias bilaterally. IMPRESSION: 1. There is poor visualization of the right ureter near its insertion which was closest to the mass seen on prior urogram in 2020. Consider direct visualization for evaluation of the right ureter orifi ce. Prominent retroperitoneal lymph nodes not significantly changed compared to prior. 2. Posterior right lateral bladder diverticulum. 3. Prostatomegaly correlate serum PSA. 4. Stable right adrenal probable lipid rich adenoma.
== END | disposition home or self-care (01) ==
LOC: RADCTMAIN 09:16
PROVIDERS: ATTEND Urology
DX: C67.9 Malignant neoplasm of bladder, unspecified (principal); N32.3 Diverticulum of bladder; N40.0 Benign prostatic hyperplasia without lower urinary tract symptoms; N28.9 Disorder of kidney and ureter, unspecified
CPT/HCPCS: 82565; 84520; 74178; 36415; 74400; Q9967